=== PATIENT | male | born 1950 | race Caucasian/White ===

== ENCOUNTER 2025-06-30 19:04 | Observation (INO) | payer OTHER ==
[~2025-06-30] VITALS: Ht 175.3 cm; Wt 70.3 kg
[2025-06-30 19:46] LABS: BASOPHILS ABSOLUTE AUTO 0.04 K/mm3 (0.00-0.23); BASOPHILS PERCENT AUTO 1 % (0-2); EOSINOPHILS ABSOLUTE AUTO 0.07 K/mm3 (0.00-0.68); EOSINOPHILS PERCENT AUTO 1 % (0-6); Hematocrit 39.8 % (37.0-53.0); Hemoglobin 13.8 g/dL (13.5-17.5); IMMATURE GRAN ABSOLUTE AUTO 0.01 K/mm3 (0.00-0.10); IMMATURE GRAN PERCENT AUTO 0 % (0-1); LYMPHOCYTES ABSOLUTE AUTO 1.47 K/mm3 (0.84-5.20); LYMPHOCYTES PERCENT AUTO 29 % (21-46); MONOCYTES ABSOLUTE AUTO 0.40 K/mm3 (0.16-1.47); MONOCYTES PERCENT AUTO 8 % (4-13); Mean Corpuscular HGB Conc 34.7 g/dL (31.5-36.5); Mean Corpuscular Volume 84 fL (80-100); NEUTROPHILS ABSOLUTE AUTO 3.12 K/mm3 (1.96-9.15); NEUTROPHILS PERCENT AUTO 61 % (41-73); NRBC ABSOLUTE 0.00 K/mm3 (0.00-0.02); NRBC Auto 0.0 /100 WBC (0.0-0.2); Platelet Count 225 K/mm3 (150-400); RDW Coefficient Variation 12.5 % (11.7-14.2); RDW Standard Deviation 38.7 fL (35.1-46.3)
[2025-06-30] MEDS ORDERED: Ketorolac Tromethamine 15mg Vial IV ONE (20:00)
[2025-06-30] MEDS ORDERED: Lidocaine 4% 1 Patch TOP ONE (20:00)
[2025-06-30 20:20] LABS: Acetaminophen, Random 2.5 ug/mL (10.0-30.0); Alanine Aminotransfer (ALT/SGP 26 U/L (12-78); Albumin, Blood 3.6 g/dL (3.4-5.0); Albumin/Globulin Ratio 1.1 (0.8-1.8); Anion Gap 8 mmol/L (3-11); Aspartate Aminotrans (AST/SGOT 32 U/L (12-37); Bilirubin, Total 0.5 mg/dL (0.1-1.0); Blood Urea Nitrogen 12 mg/dL (8-24); CO2, Blood 26 mmol/L (21-32); Calcium, Blood 10.0 mg/dL (8.5-10.1); Chloride, Blood 103 mmol/L (98-108); Creatinine, Blood 0.81 mg/dL (0.60-1.20); Ethanol (Alcohol), Blood, Med <3 mg/dL; Globulin, Blood 3.2 g/dL (2.2-4.0); Glucose, Blood 107 mg/dL (70-99); Potassium, Blood 3.9 mmol/L (3.5-5.5); Salicylate <1.7 mg/dL (2.8-20.0); Sodium, Blood 133 mmol/L (136-145); Total Protein, Blood 6.8 g/dL (6.4-8.2)
[2025-06-30 21:40] LABS: Source, Urine Clean Catch
[2025-06-30 21:43] LABS: Bilirubin, Urine Neg (Neg); Glucose Qualitative, Urine Neg (Neg); Ketones, Urine Neg (Neg); Leukocyte Esterase, Urine Neg (Neg); Protein, Urine 1+ (Neg); Specific Gravity, Urine 1.015 (1.003-1.022); Urobilinogen, Urine NORM (Normal)
[2025-06-30] MEDS ORDERED: Menthol 1 EA Adhesive Patch TOP PRN (21:50)
[2025-06-30 22:05] LABS: U Amphetamine Screen Not Detected; U Barbiturate Screen Not Detected; U Benzodiazapine Screen Not Detected; U Buprenorphine Screen Not Detected; U Cannabinoids Screen DETECTED; U Cocaine Screen Not Detected; U Methadone Screen Not Detected; U Methamphetamine Screen Not Detected; U Opiates Screen Not Detected; U Phencyclidine Screen Not Detected
[2025-06-30 22:06] LABS: U Oxycodone Screen Not Detected
[2025-06-30 22:12] LABS: Color, Urine Yellow (P-Yellow)
[2025-07-01] MEDS ORDERED: CYCL10 PO (02:01)
[2025-07-01] MEDS ORDERED: Zocor10 MG PO (02:01)
[2025-07-01] MEDS ORDERED: Colace100 MG PO (02:02)
[2025-07-01] MEDS ORDERED: Hytrin1 MG PO (02:04)
== END 2025-07-01 17:02 ==
LOC: ER 19:04 → EOR 19:05
PROVIDERS: ADMIT Emergency Medicine
DX: F33.2 Major depressive disorder, recurrent severe without psychotic features (principal); R45.851 Suicidal ideations; M54.2 Cervicalgia; M48.02 Spinal stenosis, cervical region; G89.29 Other chronic pain; Z91.51 Personal history of suicidal behavior
CPT/HCPCS: 80053; 80320; 85025; 99285; A9270; G0378; G0480; J1885